=== PATIENT | male | born 1980 | race Two or more races ===

== ENCOUNTER 2018-09-07 12:35 | Emergency (ER) | payer MEDICAID ==
[~2018-09-07] VITALS: Ht 167.6 cm; Wt 127.0 kg
[2018-09-07 16:00] VITALS: BP 155/95
[2018-09-07] MEDS ORDERED: SODIUM CHLORIDE 0.9% 1,000 ML IV ONE (16:11)
[2018-09-07] MEDS ORDERED: FAMOTIDINE 20MG/2ML VIAL IV STA (16:11)
[2018-09-07 16:21] LABS: CLARITY URINE CLEAR (CLEAR); COLOR URINE YELLOW (YELLOW); KETONES URINE TRACE (NEGATIVE); LEUKOCYTE ESTERASE URINE NEGATIVE (NEGATIVE); NITRITE URINE NEGATIVE (NEGATIVE); OCCULT BLOOD URINE NEGATIVE (NEGATIVE); PROTEIN URINE 1+ (NEGATIVE)
[2018-09-07 16:42] LABS: BASOPHILS % 0.7 % (0.0-2.0); CHLORIDE 104 mEq/L (98-107); EOSINOPHILS % 0.1 % (0.0-5.0); HEMATOCRIT. 43.7 % (42.0-52.0); HEMOGLOBIN. 15.3 g/dL (14.0-18.0); LYMPHOCYTES % 32.7 % (20.0-50.0); MEAN CORPUSCULAR VOLUME 88.4 fL (80.0-94.0); MEAN PLATELET VOLUME 7.7 fl (7.4-10.4); NEUTROPHILS % 57.5 % (40.0-76.0); PLATELET 262 x1000/uL (130-400); RED BLOOD CELL COUNT 4.94 mill/uL (4.7-6.1); RED CELL DISTRIBUTION WIDTH 13.9 % (11.6-14.6)
[2018-09-07 16:46] LABS: ETHANOL BLOOD < 10 mg/dL
== END 2018-09-07 18:10 | disposition left against medical advice (07) ==
LOC: ER 12:35
DX: T51.2X1A Toxic effect of 2-Propanol, accidental (unintentional), initial encounter (principal); R53.1 Weakness; Y92.098 Other place in other non-institutional residence as the place of occurrence of the external cause; F10.20 Alcohol dependence, uncomplicated; Y90.0 Blood alcohol level of less than 20 mg/100 ml
CPT/HCPCS: 36415; 80053; 80320; 81003; 83690; 85025; 99283; J7030; G0480